=== PATIENT | female | born 1990 | race Caucasian/White ===

== ENCOUNTER 2022-05-21 06:34 | Outpatient (CLI) | payer OTHER, SELFPAY ==
--- NOTE | ~2022-05-21 | MR_ITS ---
EXAMINATION: MR brain/brain stem wo/w con DATE: 05/21/2022 09:09 CDT INDICATION: Weakness and blurred vision TECHNIQUE: Magnetic resonance imaging (MRI) of the brain and brainstem was performed without and with 9 cc MultiHance intravenous contrast. Sequences included sagittal and axial T1-weighted SE, axial di ffusion-weighted FS SE, axial T2*-weighted GRE, axial T2-weighted FLAIR Propeller, and axial T2-weigh sincere Propeller. Apparent diffusion coefficient (ADC) maps were created. COMPARISON: No prior studies for comparison. FINDINGS: The brain volume and ventricular system are within normal limits. The brain parenchymal si gnal intensity pattern and sahu/white matter is normal and there is no evidence of hemorrhage, space occupying masses or infarctions. The flow signal voids of the major arterial structures about the [place] and within the trish r dural venous sinuses appear grossly unremarkable and patent. The seventh and eighth cranial nerve complexes are normal. The mid sagittal image demonstrates a normal craniovertebral junction and bess us callosum. There is a small mucous retention cyst of the right maxillary sinus. Otherwise the sinus es are unremarkable. No abnormal contrast enhancement was appreciated. IMPRESSION: 1: Normal MRI of the brain. Reviewed, dictated and finalized at location B. IMPRESSION: 1: Normal MRI of the brain.
== END 2022-05-21 06:35 | disposition home or self-care (01) ==
PROVIDERS: PCP Family Medicine; Visit Provider Physician Assistant Medical
DX: R53.1 Weakness (principal); H53.8 Other visual disturbances
CPT/HCPCS: 70553; A9577

== ENCOUNTER 2022-07-10 16:12 | Outpatient (CLI) | payer OTHER, SELFPAY ==
--- NOTE | ~2022-07-10 | XR_ITS ---
XR sacroiliac joints min 3V 07/10/2022 17:03 Indication: Osteoarthritis. Procedure: 3 views of the sacroiliac joints Comparison: No prior studies for comparison. Findings: Sacroiliac joints are symmetric without evidence for significant degenerative change, erosi on or ankylosis. Sacral foramen are symmetric. Surrounding osseous structures are unremarkable. Impression: 1: No significant abnormality of the sacroiliac joints. Reviewed, dictated and finalized at location A. Impression: 1: No significant abnormality of the sacroiliac joints.
--- NOTE | ~2022-07-10 | XR_ITS ---
EXAMINATION: XR foot LT standing 2V, XR foot RT standing 2V DATE: 07/10/2022 17:02 INDICATION: Unspecified osteoarthritis at unspecified site TECHNIQUE: 1. Standing dorsal plantar and lateral views of the left foot were obtained. 2. Standing dorsal plantar and lateral views of the right foot were obtained. COMPARISON: None. FINDINGS: Normal alignment at the bilateral feet and ankles. Bone island at the left cuboid. No fracture. Devel opmental fusion across the bilateral third-fifth distal interphalangeal joints. Minimal to mild osteo arthritis at the bilateral forefeet at the left first metatarsophalangeal and left second and third p roximal interphalangeal joints and at the right first interphalangeal and right second proximal inter phalangeal joint. Remaining joint spaces are relatively preserved. No erosions to suggest inflammator y arthritis. IMPRESSION: 1. Minimal to mild polyarticular osteoarthritis at the bilateral forefeet. Reviewed, dictated and finalized at location A. IMPRESSION: 1. Minimal to mild polyarticular osteoarthritis at the bilateral forefeet.
--- NOTE | ~2022-07-10 | XR_ITS ---
XR_[id number]_CR 07/10/2022 17:03 Indication: Osteoarthritis. Procedure: 3 views cervical spine Comparison: No prior studies for comparison. Findings: Vertebral body and disc heights are preserved. No prevertebral soft tissue swelling. No fra cture or traumatic malalignment. Odontoid process is normal. Lung apices are normal. There is a heale d right third rib fracture. There is a right C7 cervical rib. Impression: 1: No significant abnormality of the cervical spine. Reviewed, dictated and finalized at location A. Impression: 1: No significant abnormality of the cervical spine.
--- NOTE | ~2022-07-10 | XR_ITS ---
EXAMINATION: HAND-SAMARA ARTHRITIS 3+VIEWS DATE: 07/10/2022 17:02 INDICATION: Unspecified osteoarthritis at unspecified site TECHNIQUE: Posteroanterior, lateral, and oblique views of the left and of the right hands as well as a ballcatchers view of both hands were obtained. COMPARISON: None. FINDINGS: Normal alignment at the bilateral hands and wrists. Symmetric mild polyarticular osteoarthritis at th e bilateral second and fourth distal interphalangeal and bilateral second-fourth proximal interphalan geal joints as well as at the bilateral and first and fourth metacarpophalangeal joints. No erosions to suggest an inflammatory arthritis. Soft tissue are unremarkable. IMPRESSION: 1. Symmetric pattern of mild polyarticular osteoarthritis at a few of the metacarpal phalangeal and i nterphalangeal joints. Reviewed, dictated and finalized at location A. IMPRESSION: 1. Symmetric pattern of mild polyarticular osteoarthritis at a few of the metac arpal phalangeal and interphalangeal joints.
== END 2022-07-10 16:13 | disposition home or self-care (01) ==
PROVIDERS: PCP Physician Assistant Medical; Visit Provider Internal Medicine
DX: E55.9 Vitamin D deficiency, unspecified (principal); R53.83 Other fatigue; M19.071 Primary osteoarthritis, right ankle and foot; M19.072 Primary osteoarthritis, left ankle and foot; M19.041 Primary osteoarthritis, right hand; M19.042 Primary osteoarthritis, left hand
CPT/HCPCS: 72040; 72202; 73130; 73620

== ENCOUNTER 2022-10-03 14:13 | Outpatient (CLI) | payer OTHER, SELFPAY ==
--- NOTE | ~2022-10-03 | XR_ITS ---
EXAMINATION: XR lumbar spine min 4V DATE: 10/03/2022 14:33 INDICATION: Unspecified osteoarthritis, unspecified site. TECHNIQUE: 5 views of lumbar spine were obtained. COMPARISON: CT abdomen and pelvis 01/12/2019 FINDINGS: There is 7 degrees levocurvature of thoracolumbar spine. Vertebral body heights and interve rtebral disc heights are normal. There is a chronic left L5 pars defect. There is multilevel mild fac et joint osteoarthritis. There is spina bifida occulta at L5. IMPRESSION: 1. Mild lumbar facet joint osteoarthritis. 2. Chronic left L5 pars defect. Reviewed, dictated and finalized at location A. [employer]
== END 2022-10-03 14:14 | disposition home or self-care (01) ==
LOC: ANHIMG 14:15
PROVIDERS: PCP Physician Assistant Medical; Visit Provider Internal Medicine
DX: M19.90 Unspecified osteoarthritis, unspecified site (principal); S22.39XA Fracture of one rib, unspecified side, initial encounter for closed fracture; X58.XXXA Exposure to other specified factors, initial encounter; M51.36 Other intervertebral disc degeneration, lumbar region
CPT/HCPCS: 72110